=== PATIENT | female | born 1985 | race Asian ===

== ENCOUNTER → 2019-03-19 | Outpatient (CLI) | payer OTHER | END | disposition home or self-care (01) | LOC: LAB SHORT 14:29 → LAB 14:29 | DX: Z34.80 Encounter for supervision of other normal pregnancy, unspecified trimester (principal) | CPT/HCPCS: 87081; 87653 ==

== ENCOUNTER 2019-04-10 08:12 | Inpatient (IN) | payer OTHER ==
[~2019-04-10] VITALS: Ht 154.9 cm; Wt 74.8 kg
--- NOTE | 2019-04-10 08:28 | NUR ---
HERE WITH REPORT OF CONTRACTIONS SINCE 619 PATIENT WANTS TO AND IS FRIGHTENED BECAUSE HER LAST EXPERIENCE WAS TERRIBLE
[2019-04-10] MEDS ORDERED: ALIVE PRENATAL1 EACH PO (10:54)
[2019-04-10 11:42] LABS: BASOPHILS ABSOLUTE AUTO 0.05 K/mm3 (0.00-0.23); BASOPHILS PERCENT AUTO 0 % (0-2); EOSINOPHILS ABSOLUTE AUTO 0.01 K/mm3 (0.00-0.68); EOSINOPHILS PERCENT AUTO 0 % (0-6); Hematocrit 40.1 % (33.0-51.0); Hemoglobin 13.4 g/dL (11.5-16.0); IMMATURE GRAN ABSOLUTE AUTO 0.12 K/mm3 (0.00-0.10); IMMATURE GRAN PERCENT AUTO 1 % (0-1); LYMPHOCYTES ABSOLUTE AUTO 1.45 K/mm3 (0.84-5.20); LYMPHOCYTES PERCENT AUTO 8 % (21-46); MONOCYTES ABSOLUTE AUTO 0.61 K/mm3 (0.16-1.47); MONOCYTES PERCENT AUTO 4 % (4-13); Mean Corpuscular HGB 29.6 pg (26.0-34.0); Mean Corpuscular HGB Conc 33.4 g/dL (31.5-36.5); Mean Corpuscular Volume 89 fL (80-100); NEUTROPHILS ABSOLUTE AUTO 15.39 K/mm3 (1.96-9.15); NEUTROPHILS PERCENT AUTO 87 % (41-73); Platelet Count 272 K/mm3 (150-400); RDW Coefficient Variation 13.6 % (11.7-14.2); Red Blood Cell Count 4.53 M/mm3 (3.80-5.20); White Blood Cell Count 17.63 K/mm3 (4.00-11.30)
[2019-04-10 16:20] LABS: PCO2 Cord - Arterial 94.7 mmHg (40-50); pH Cord - Arterial 6.91 (7.28-7.35)
[2019-04-10 16:22] LABS: PCO2 Cord - Venous 87.1 mmHg (40-50); PO2 Cord - Arterial < 12 mmHg (16-20); pH Umbilical Cord - Venous 6.98 (7.26-7.35)
[2019-04-10 16:23] LABS: PO2 Cord - Venous < 12 mmHg (28-32)
--- NOTE | 2019-04-10 16:26 | NUR ---
04/10/19 1626 Lorena Salcido [id number] PT ARRIVED TO [facility] OR SUITE WITH ARIAS CATHETER INTACT DRAINING CLEAR YELLOW URINE,
--- NOTE | 2019-04-10 19:20 | NUR ---
OUT TO ROOM VIA BED. REPORT TO ONCOMING SHIFT
[2019-04-10 21:04] LABS: Hematocrit 27.7 % (33.0-51.0)
--- NOTE | 2019-04-10 23:39 | NUR ---
UPON INITIAL [employer]OCK MINER BLASTING FOUND PT BP 80'S/50'S WITH HR IN 140'S FUNDUS WAS MIDLINE AND 1FINGER ABOVE THE UMBILICUS WITH SMALL BLEEDING WITH MASSAGE. PT REPORTED DIZZINESS AND RINGING IN THE EARS AND WAS REQUESTING OXYGEN. MANUAL BP WAS ATTEMPTED AND PT BECAME DROWSY AND DIFFICULT TO AROUSE. MARITZA IQBAL AND LORENZA WERE CALLED TO THE ROOM TO ASSESS AROUND 1939 AND AN REPORTING SPECIALIST WAS CALLED AT 1948. FUNDAL MASSAGE WAS PERFORMED BY LORENZA AND MANUAL BP WAS ATTEMPED AGAIN BUT UNSUCCESSFUL. AT 1949 A BOLUS OF PIT WAS STARTED AT 999ML/HR AND QXYGEN WAS ADMINISTERED VIA NONREBREATHER, ALSO, A BOLUS OF LR WAS STARTED. WITH VIGOROUS FUDAL MASSAGE 2LG CLOTS WERE EXPELLED AND FUNDUS WAS 2 FINGERS ABOVE UMBILICUS. AT 1952 FUNDUS WAS 3 ABOVE UMBILICUS AND MANUAL BP WAS 88/42 WITH A HR IN 130S. AT 1958 METHERGINE WAS GIVEN IM IN THE RT LEG AND DR SCHMIDT WAS IN ROOM. PT MANUAL BP WAS 80/58 AND FUNDUS REMAINED FIRM AT 2 FINGERS ABOVE UMBILICUS AT 2009, MANUAL BP 100/55 HR 104 O2SAT 100%. AT 2014, MANUAL BP 105/58. STAFF IN ROOM FOR REPORTING SPECIALIST INCLUDED MARITZA SOLORIO , MARITZA BRITT , MARITZA IQBAL , S/MARITZA MANZANARES , MARITZA ARIAS , KIRTI,MARITZA (ICU), DR. Rickey SCHMIDT, AND RT STAFF
[2019-04-11 05:26] LABS: Hematocrit 22.3 % (33.0-51.0); Hemoglobin 7.3 g/dL (11.5-16.0); Mean Corpuscular HGB 29.9 pg (26.0-34.0); Mean Corpuscular HGB Conc 32.7 g/dL (31.5-36.5); Mean Corpuscular Volume 91 fL (80-100); Mean Platelet Volume 9.5 fL (9.1-12.4); Platelet Count 219 K/mm3 (150-400); RDW Coefficient Variation 13.6 % (11.7-14.2); RDW Standard Deviation 45.4 fL (35.1-46.3); Red Blood Cell Count 2.44 M/mm3 (3.80-5.20); White Blood Cell Count 19.96 K/mm3 (4.00-11.30)
--- NOTE | 2019-04-11 11:45 | NUR ---
IV STARTED BY RN FROM ICU, DORA. MD REQUESTED PT HAVE A POWERGLIDE IV PLACED, BUT RN SAYS PT HAS A LOT OF NERVE BUNDLES NEARBY AND WAS ABLE TO PLACE A PERIPHERAL IV INSTEAD
--- NOTE | 2019-04-11 11:58 | NUR ---
PT EDUCATED ON BLOOD TRANSFUSION PROCESS
[2019-04-11 14:32] LABS: Hematocrit 22.7 % (33.0-51.0); Hemoglobin 7.4 g/dL (11.5-16.0)
[2019-04-12 05:59] LABS: BASOPHILS ABSOLUTE AUTO 0.03 K/mm3 (0.00-0.23); BASOPHILS PERCENT AUTO 0 % (0-2); EOSINOPHILS ABSOLUTE AUTO 0.04 K/mm3 (0.00-0.68); EOSINOPHILS PERCENT AUTO 0 % (0-6); Hematocrit 20.6 % (33.0-51.0); Hemoglobin 6.7 g/dL (11.5-16.0); IMMATURE GRAN ABSOLUTE AUTO 0.13 K/mm3 (0.00-0.10); IMMATURE GRAN PERCENT AUTO 1 % (0-1); LYMPHOCYTES ABSOLUTE AUTO 2.08 K/mm3 (0.84-5.20); LYMPHOCYTES PERCENT AUTO 13 % (21-46); MONOCYTES ABSOLUTE AUTO 1.02 K/mm3 (0.16-1.47); MONOCYTES PERCENT AUTO 6 % (4-13); Mean Corpuscular HGB 29.8 pg (26.0-34.0); Mean Corpuscular HGB Conc 32.5 g/dL (31.5-36.5); Mean Corpuscular Volume 92 fL (80-100); Mean Platelet Volume 9.1 fL (9.1-12.4); NEUTROPHILS ABSOLUTE AUTO 13.26 K/mm3 (1.96-9.15); NEUTROPHILS PERCENT AUTO 80 % (41-73); Platelet Count 222 K/mm3 (150-400); RDW Standard Deviation 50.1 fL (35.1-46.3); Red Blood Cell Count 2.25 M/mm3 (3.80-5.20); White Blood Cell Count 16.56 K/mm3 (4.00-11.30)
--- NOTE | 2019-04-12 06:28 | NUR ---
PT VISITED IN NURSERY AT 0545.
[2019-04-12 12:45] LABS: Hematocrit 25.8 % (33.0-51.0); Hemoglobin 8.5 g/dL (11.5-16.0)
--- NOTE | 2019-04-12 16:32 | NUR ---
PT UP TO CHAIR, TOLERATED FAIR. ENCOURAGED PT TO TAKE A SHOWER. PT STATED SHE WANTED TO WAIT UNTIL TOMORROW. PT REQUESTED PAIN MEDICATION AND RE EVALUATE SHOWER AFTER PAIN MEDICATION. WILL CONTINUE TO MONITOR.
[2019-04-13 05:32] LABS: BASOPHILS ABSOLUTE AUTO 0.04 K/mm3 (0.00-0.23); BASOPHILS PERCENT AUTO 0 % (0-2); EOSINOPHILS ABSOLUTE AUTO 0.14 K/mm3 (0.00-0.68); EOSINOPHILS PERCENT AUTO 1 % (0-6); Hematocrit 22.8 % (33.0-51.0); Hemoglobin 7.5 g/dL (11.5-16.0); IMMATURE GRAN ABSOLUTE AUTO 0.14 K/mm3 (0.00-0.10); IMMATURE GRAN PERCENT AUTO 1 % (0-1); LYMPHOCYTES ABSOLUTE AUTO 2.23 K/mm3 (0.84-5.20); LYMPHOCYTES PERCENT AUTO 16 % (21-46); MONOCYTES ABSOLUTE AUTO 0.64 K/mm3 (0.16-1.47); MONOCYTES PERCENT AUTO 5 % (4-13); Mean Corpuscular HGB 29.8 pg (26.0-34.0); Mean Corpuscular HGB Conc 32.9 g/dL (31.5-36.5); Mean Corpuscular Volume 91 fL (80-100); Mean Platelet Volume 8.8 fL (9.1-12.4); NEUTROPHILS ABSOLUTE AUTO 10.52 K/mm3 (1.96-9.15); NEUTROPHILS PERCENT AUTO 77 % (41-73); Platelet Count 244 K/mm3 (150-400); RDW Standard Deviation 49.4 fL (35.1-46.3); Red Blood Cell Count 2.52 M/mm3 (3.80-5.20); White Blood Cell Count 13.71 K/mm3 (4.00-11.30)
--- NOTE | 2019-04-13 06:11 | NUR ---
ADL NOTE: PT OFFERED SHOWER AT START OF SHIFT BUT DECLINED AND AGREED TO SHOWER IN THE AM. PT OFFERED SHOWER AT THIS TIME AND STATED THAT IT WAS TOO EARLY.
--- NOTE | 2019-04-14 00:51 | NUR ---
SWELLING NOTE: PT CALLED THIS RN TO ROOM CONCERNED ABOUT BILATERAL LOWER EXTREMITY SWELLING. NEGATIVE HOLMANS. SWELLING FAILY EQUAL- SLIGHTLY INCREASE IN RIGHT VS LEFT, NO HOT TO TOUCH OR TENDER. DISCUSSED WHAT TO EXPECT WITH SWELLING AND KEEPING LEGS ELEVATED MUCH POSSIBLE. PT VERBILIZED UNDERSTANDING. GIVEN EXTRA PILLOWS FOR UNDER FEET. WILL CONTINUE TO MONITOR
--- NOTE | 2019-04-14 09:15 | NUR ---
PT FINALLY GOT SOME SLEEP LAST NIGHT. AWAKE AND VERY TEARFUL MISSING HER DAUGHTER. UNABLE TO SEE HER D/T HER BEING SICK SO NOT COPING WELL WITH IT. HAD A LONG TALK WITH PATIENT ABOUT HER EMOTIONS AND STRESS SINCE BEING HERE. FOB REMAINS AT BEDSIDE AND VERY ATTENTIVE. AMBULATING WELL IN ROOM. STATES SHE IS STILL GETTING DIZZY AND OCCASSIONALLY SEEING SPOTS WHEN SHE GETS UP BUT TOLERATING IT WELL. WILL DISCUSS WITH SCHMIDT TODAY ABOUT ADDITIONAL LABS PER PATIENTS REQUEST. PT IS WANTING HER IV OUT D/T BEING A LITTLE SWOLLEN AND VERY SORE. VERBALIZES UNDERSTANDING OF POSSIBLY NEEDING ANOTHER ONE. PAIN MEDS WORK WELL FOR PATIENT BUT ENCOURAGED HER TO TAKE THEM A LITTLE MORE OFTEN TO STAY ON TOP OF PAIN. BF, BOTTLE FEEDING AND PUMPING INDEPENDANTLY. VSS. CONTINUES TO PASS GAS BUT NO BM YET.
[2019-04-14 12:00] LABS: BASOPHILS ABSOLUTE AUTO 0.03 K/mm3 (0.00-0.23); BASOPHILS PERCENT AUTO 0 % (0-2); EOSINOPHILS ABSOLUTE AUTO 0.18 K/mm3 (0.00-0.68); EOSINOPHILS PERCENT AUTO 2 % (0-6); Hematocrit 24.8 % (33.0-51.0); Hemoglobin 7.9 g/dL (11.5-16.0); IMMATURE GRAN ABSOLUTE AUTO 0.17 K/mm3 (0.00-0.10); IMMATURE GRAN PERCENT AUTO 2 % (0-1); LYMPHOCYTES ABSOLUTE AUTO 2.08 K/mm3 (0.84-5.20); LYMPHOCYTES PERCENT AUTO 20 % (21-46); MONOCYTES ABSOLUTE AUTO 0.53 K/mm3 (0.16-1.47); MONOCYTES PERCENT AUTO 5 % (4-13); Mean Corpuscular HGB Conc 31.9 g/dL (31.5-36.5); Mean Corpuscular Volume 91 fL (80-100); Mean Platelet Volume 8.6 fL (9.1-12.4); NEUTROPHILS ABSOLUTE AUTO 7.35 K/mm3 (1.96-9.15); NEUTROPHILS PERCENT AUTO 71 % (41-73); Platelet Count 305 K/mm3 (150-400); RDW Coefficient Variation 14.5 % (11.7-14.2); RDW Standard Deviation 47.7 fL (35.1-46.3); Red Blood Cell Count 2.72 M/mm3 (3.80-5.20); White Blood Cell Count 10.34 K/mm3 (4.00-11.30)
--- NOTE | 2019-04-14 12:56 | NUR ---
DR SCHMIDT UPDATED, SANDRA RN NOTIFIED WAS CALLED TO PT ROOM AT 1240 WITH COMPLAINT FROM PATIENT AND , THAT PT WAS VERY DIZZY AND CANT FINISH HER SENTENCES. PT WAS SITTING AT SIDE OF BED, CLUTCHING THE SIDE RAIL. GOT PATIENT INTO BED, DID A SET OF VS 114/84 PULSE IS 100, BIOX 98%, REPEATED 10 MIN LATER 125/83 PULSE 100. PT REPORTS KNOWS THE WORDS SHE WANTS TO SAY, BUT DOZES OFF TRYING TO SAY HER THOUGHTS. H&H IS SLIGHTLY UP. DR SCHMIDT WAS UPDATED, NO NEW ORDERS,
--- NOTE | 2019-04-14 14:17 | NUR ---
RASH CALLED TO ROOM HER BACK WAS REALLY BURNING ,ITCHY AND HOT. IT APPEARS TO BE WHERE THE TAPE WAS ON HER BACK FROM HER EPIDURAL. YOU CAN SEE THE ACTUAL STRAIGHT LINES OF WHERE THE TAPE WOULD OF BEEN AND ITS RED, HOT, RAISED AND ITCHY. THE ACTUAL EPIDURAL SITE IS WNL. ORDER TO TRY HYDROCORTISONE CREAM TO AFFECTED AREA. PT STATES HER DIZZINESS HAS IMPROVED AND IS TALKING NORMAL.
[2019-04-14] MEDS ORDERED: Ferrous Sulfat325 M2 PO (15:18)
[2019-04-14] MEDS ORDERED: GAVILAX17 GM PO (15:19)
[2019-04-14] MEDS ORDERED: DOCU100 PO (15:19)
[2019-04-14] MEDS ORDERED: Percocet 5-3251 EACH PO (15:20)
[2019-04-14] MEDS ORDERED: IBUP800 PO (15:20)
--- NOTE | 2019-04-14 18:22 | NUR ---
DISCUSSION PATIENT OPENED UP TO ME WHILE FOB WHEN TO PHARMACY TO GET MEDS. EXPLAINED THAT THIS ENTIRE EXPERIENCED HAS REALLY SHAKEN UP HER WELL. HE HAS SEVERE ANXIETY AND AGORAPHOBIA. PT VERY EMOTIONAL AND CRYING. EXPLAINED THAT HE HAS TO THERAPY EVERY WEEK AND ENCOURAGED THEM BOTH TO GO TOGETHER THIS WEEK TO DISCUSS THIS EVENT OF HER FEELING LIKE SHE WAS TO HELP BOTH OF THEM COPE AND HEAL. POST DEPRESSION DISCUSSED A LOT. SHE STATES SHE HAD THIS WITH HER DAUGHTER BUT DIDNT WANT HER TO KNOW AND JUST WORKED THOUGH IT ON HER OWN. PT PROMISES TO GO SEE DR SCHMIDT THIS TIME IF SHE STARTS FEELING THIS WAY. WILL PLAN TO DO A FOLLOW UP A FEW DAYS AFTER PATIENT IS HOME TO SEE HOW SHE IS DOING EMOTIONALLY AND PHYSICALLY. PT STILL CONINUES TO COMPLAIN OF A HEADACHE. STATES MEDS AND SLEEP HAVE HELPED BUT STILL HASNT GONE AWAY. ENCOURAGED TO DRINK LOTS OF WATER AND REST MUCH POSSIBLE.
--- NOTE | 2019-04-14 18:40 | NUR ---
DR BRAYAN SCHMIDT CALLED TO CHECK IN ON PATIENT. EXPLAINED TEAR FULL EPISODES AND SOME OF THE MENTAL HEALTH ISSUES GOING ON FOR BRAYAN TO KEEP AN EYE ON. PT STATES SHE FEELS OK TO BE PUT TO BORDER STATUS. DISCHARGE INSTRUCTIONS DISCUSSED AND PATIENT AND VERBALIZE UNDERSTANDING OF THEM AND FOLLOW UP APPOINTMENTS.
--- NOTE | 2019-04-14 19:06 | NUR ---
DISCHARGE MOTHER TO [facility] STATUS. DISCHARGE TEACHING DONE AND PARENTS VERBALIZE UNDERSTANDING OF INSTRUCTIONS AND FOLLOW UP APPOINTMENTS. NO QUESTIONS OR CONCERNS.
--- NOTE | 2019-04-14 19:16 | NUR ---
UPDATED ON RASH BACK RASH HAS IMPROVED WITH HYDROCORDISONE CREAM AND WILL APPLY AGAIN BEFORE GOING TO BED.
== END 2019-04-14 19:31 | disposition home or self-care (01) | DRG 786 ==
LOC: BC 08:12 → OBS 08:12 → BC 08:13 → OBS 10:24 → BC 10:25
PROVIDERS: ADMIT Obstetrics & Gynecology
PROC: 0WJF0ZZ Inspection of Abdominal Wall, Open Approach (ICD-10-PCS; 2019-04-10)
PROC: 10907ZC Drainage of Amniotic Fluid, Therapeutic from Products of Conception, Via Natural or Artificial Opening (ICD-10-PCS; 2019-04-10)
PROC: 10D00Z1 Extraction of Products of Conception, Low, Open Approach (ICD-10-PCS; principal; 2019-04-10 14:15)
PROC: 30233N1 Transfusion of Nonautologous Red Blood Cells into Peripheral Vein, Percutaneous Approach (ICD-10-PCS; 2019-04-12)
DX: O24.420 Gestational diabetes mellitus in childbirth, diet controlled (principal); O71.1 Rupture of uterus during labor; D62 Acute posthemorrhagic anemia; Z3A.39 39 weeks gestation of pregnancy; Z37.0 Single live birth; O99.89 Other specified diseases and conditions complicating pregnancy, childbirth and the puerperium; O76 Abnormality in fetal heart rate and rhythm complicating labor and delivery; N13.30 Unspecified hydronephrosis; O64.1XX0 Obstructed labor due to breech presentation, not applicable or unspecified; O77.0 Labor and delivery complicated by meconium in amniotic fluid; O90.81 Anemia of the puerperium
CPT/HCPCS: 36415; 36430; 51702; 59025; 82803; 82947; 85014; 85018; 85025; 85027; 86850; 86900; 86901; 86923; J0690; J1885; J1940; J2001; J2210; J2250; J2370; J2590; J2704; J2765; J3010; J7120; P9016

== ENCOUNTER 2019-05-01 14:20 | Emergency (ER) | payer OTHER ==
[~2019-05-01] VITALS: Ht 154.9 cm; Wt 69.0 kg
[~2019-05-01 14:20] MED LIST: ALIVE PRENATAL1 EACH PO; DOCU100 PO; Ferrous Sulfat325 M2 PO; GAVILAX17 GM PO; IBUP800 PO; Percocet 5-3251 EACH PO
[2019-05-01 14:38] LABS: BASOPHILS ABSOLUTE AUTO 0.05 K/mm3 (0.00-0.23); BASOPHILS PERCENT AUTO 1 % (0-2); EOSINOPHILS ABSOLUTE AUTO 0.13 K/mm3 (0.00-0.68); EOSINOPHILS PERCENT AUTO 1 % (0-6); Hematocrit 35.1 % (33.0-51.0); IMMATURE GRAN ABSOLUTE AUTO 0.05 K/mm3 (0.00-0.10); IMMATURE GRAN PERCENT AUTO 1 % (0-1); LYMPHOCYTES ABSOLUTE AUTO 2.05 K/mm3 (0.84-5.20); LYMPHOCYTES PERCENT AUTO 20 % (21-46); MONOCYTES ABSOLUTE AUTO 0.64 K/mm3 (0.16-1.47); MONOCYTES PERCENT AUTO 6 % (4-13); Mean Corpuscular HGB 29.9 pg (26.0-34.0); Mean Corpuscular HGB Conc 31.3 g/dL (31.5-36.5); NEUTROPHILS ABSOLUTE AUTO 7.36 K/mm3 (1.96-9.15); NEUTROPHILS PERCENT AUTO 72 % (41-73); Platelet Count 487 K/mm3 (150-400); RDW Coefficient Variation 13.6 % (11.7-14.2); Red Blood Cell Count 3.68 M/mm3 (3.80-5.20); White Blood Cell Count 10.28 K/mm3 (4.00-11.30)
[2019-05-01 14:40] LABS: Mean Corpuscular Volume 95 fL (80-100)
[2019-05-01 14:51] LABS: Alanine Aminotransfer (ALT/SGP 19 U/L (12-78); Albumin, Blood 3.3 g/dL (3.4-5.0); Albumin/Globulin Ratio 0.8 (0.8-1.8); Alk Phos 81 U/L (50-136); Anion Gap 7 mmol/L (6-16); Aspartate Aminotrans (AST/SGOT 13 U/L (12-37); Bilirubin, Total 0.3 mg/dL (0.1-1.0); Blood Urea Nitrogen 12 mg/dL (8-24); CO2, Blood 25 mmol/L (21-32); Calcium, Blood 8.5 mg/dL (8.5-10.1); Chloride, Blood 108 mmol/L (98-108); Creatinine, Blood 0.55 mg/dL (0.40-1.00); Globulin, Blood 3.9 g/dL (2.2-4.0); Glomerular Filtration Rate >60 (60-); Glucose, Blood 122 mg/dL (70-99); Potassium, Blood 3.7 mmol/L (3.5-5.5); Sodium, Blood 140 mmol/L (136-145); Total Protein, Blood 7.2 g/dL (6.4-8.2)
== END 2019-05-01 17:40 | disposition home or self-care (01) ==
LOC: ER 14:20
PROVIDERS: Emergency Medicine
DX: O99.89 Other specified diseases and conditions complicating pregnancy, childbirth and the puerperium (principal); R10.31 Right lower quadrant pain; Z79.899 Other long term (current) drug therapy; Z87.891 Personal history of nicotine dependence
CPT/HCPCS: 74177; 80053; 84703; 85025; 96374-59; 96375; 99284-25; J2405; J3010; Q9967

== ENCOUNTER 2019-05-04 03:40 | Observation (INO) | payer OTHER ==
[~2019-05-04] VITALS: Ht 154.9 cm; Wt 69.4 kg
[2019-05-04 03:53] LABS: BASOPHILS ABSOLUTE AUTO 0.03 K/mm3 (0.00-0.23); BASOPHILS PERCENT AUTO 0 % (0-2); EOSINOPHILS ABSOLUTE AUTO 0.22 K/mm3 (0.00-0.68); EOSINOPHILS PERCENT AUTO 2 % (0-6); Hematocrit 33.9 % (33.0-51.0); Hemoglobin 10.5 g/dL (11.5-16.0); IMMATURE GRAN ABSOLUTE AUTO 0.05 K/mm3 (0.00-0.10); IMMATURE GRAN PERCENT AUTO 0 % (0-1); LYMPHOCYTES ABSOLUTE AUTO 5.06 K/mm3 (0.84-5.20); LYMPHOCYTES PERCENT AUTO 43 % (21-46); MONOCYTES ABSOLUTE AUTO 0.75 K/mm3 (0.16-1.47); MONOCYTES PERCENT AUTO 6 % (4-13); Mean Corpuscular HGB 29.7 pg (26.0-34.0); Mean Corpuscular Volume 96 fL (80-100); Mean Platelet Volume 8.2 fL (9.1-12.4); NEUTROPHILS ABSOLUTE AUTO 5.64 K/mm3 (1.96-9.15); NEUTROPHILS PERCENT AUTO 48 % (41-73); Platelet Count 515 K/mm3 (150-400); RDW Coefficient Variation 13.5 % (11.7-14.2); RDW Standard Deviation 47.8 fL (35.1-46.3); Red Blood Cell Count 3.54 M/mm3 (3.80-5.20); White Blood Cell Count 11.75 K/mm3 (4.00-11.30)
[2019-05-04 04:22] LABS: Alanine Aminotransfer (ALT/SGP 20 U/L (12-78); Albumin, Blood 3.5 g/dL (3.4-5.0); Albumin/Globulin Ratio 0.9 (0.8-1.8); Alk Phos 91 U/L (50-136); Anion Gap 8 mmol/L (6-16); Aspartate Aminotrans (AST/SGOT 23 U/L (12-37); Beta HCG, Quantitative, Serum <1 mIU/mL (0-3); Bilirubin, Total 0.2 mg/dL (0.1-1.0); Blood Urea Nitrogen 12 mg/dL (8-24); CO2, Blood 26 mmol/L (21-32); Calcium, Blood 8.7 mg/dL (8.5-10.1); Chloride, Blood 105 mmol/L (98-108); Creatinine, Blood 0.57 mg/dL (0.40-1.00); Globulin, Blood 4.1 g/dL (2.2-4.0); Glomerular Filtration Rate >60 (60-); Glucose, Blood 139 mg/dL (70-99); Potassium, Blood 3.2 mmol/L (3.5-5.5); Sodium, Blood 139 mmol/L (136-145); Total Protein, Blood 7.6 g/dL (6.4-8.2)
[2019-05-04] MEDS ORDERED: AMOX875 (06:59)
[2019-05-04 07:19] LABS: BASOPHILS ABSOLUTE AUTO 0.05 K/mm3 (0.00-0.23); BASOPHILS PERCENT AUTO 0 % (0-2); EOSINOPHILS ABSOLUTE AUTO 0.02 K/mm3 (0.00-0.68); EOSINOPHILS PERCENT AUTO 0 % (0-6); Hematocrit 36.4 % (33.0-51.0); Hemoglobin 11.7 g/dL (11.5-16.0); IMMATURE GRAN ABSOLUTE AUTO 0.11 K/mm3 (0.00-0.10); IMMATURE GRAN PERCENT AUTO 1 % (0-1); LYMPHOCYTES ABSOLUTE AUTO 1.08 K/mm3 (0.84-5.20); LYMPHOCYTES PERCENT AUTO 6 % (21-46); MONOCYTES ABSOLUTE AUTO 0.54 K/mm3 (0.16-1.47); MONOCYTES PERCENT AUTO 3 % (4-13); Mean Corpuscular HGB 29.5 pg (26.0-34.0); Mean Corpuscular HGB Conc 32.1 g/dL (31.5-36.5); Mean Platelet Volume 8.1 fL (9.1-12.4); NEUTROPHILS ABSOLUTE AUTO 17.67 K/mm3 (1.96-9.15); NEUTROPHILS PERCENT AUTO 91 % (41-73); Platelet Count 352 K/mm3 (150-400); RDW Standard Deviation 50.9 fL (35.1-46.3); Red Blood Cell Count 3.96 M/mm3 (3.80-5.20); White Blood Cell Count 19.47 K/mm3 (4.00-11.30)
--- NOTE | 2019-05-04 07:20 | NUR ---
PT ARRIVED TO ROOM 229 FROM ER DEPT PT IS BEING ADMITTED FOR BLEEDING PT PT STATED SHE FEELS SLIGHTY DIZZY AT THIS TIME NO VAG BLEEDING AT THIS TIME PT WEARING ATTENDS ORIENTED TO ROOM AT BEDSIDE
[2019-05-04 07:48] LABS: Mean Corpuscular Volume 92 fL (80-100)
--- NOTE | 2019-05-04 08:24 | NUR ---
MEDS GIVEN SCHED ALSO CALLED PHARMACY RE PT ABILITY TO BREASTFEED AFTER HAVING MED TO STOP BLEEDING CALLED [facility] TO GET A BREAST PUMP AND PADS PT TO DUMP THE MILK
--- NOTE | 2019-05-04 10:46 | NUR ---
PO MOTRIN GIVEN PO PERCOCET GIVEN EARLIER FOR CRAMPING 6-05/16 PT HAS SMALL AMT OF BLEEDING ON ATTENDS NO CLOTS
[2019-05-04 11:19] LABS: BASOPHILS ABSOLUTE AUTO 0.05 K/mm3 (0.00-0.23); BASOPHILS PERCENT AUTO 0 % (0-2); EOSINOPHILS PERCENT AUTO 0 % (0-6); Hematocrit 35.4 % (33.0-51.0); Hemoglobin 11.6 g/dL (11.5-16.0); IMMATURE GRAN ABSOLUTE AUTO 0.07 K/mm3 (0.00-0.10); IMMATURE GRAN PERCENT AUTO 1 % (0-1); LYMPHOCYTES ABSOLUTE AUTO 1.54 K/mm3 (0.84-5.20); LYMPHOCYTES PERCENT AUTO 10 % (21-46); MONOCYTES ABSOLUTE AUTO 0.49 K/mm3 (0.16-1.47); MONOCYTES PERCENT AUTO 3 % (4-13); Mean Corpuscular HGB 29.7 pg (26.0-34.0); Mean Corpuscular HGB Conc 32.8 g/dL (31.5-36.5); Mean Corpuscular Volume 91 fL (80-100); Mean Platelet Volume 8.1 fL (9.1-12.4); NEUTROPHILS PERCENT AUTO 86 % (41-73); Platelet Count 358 K/mm3 (150-400); RDW Coefficient Variation 15.5 % (11.7-14.2); RDW Standard Deviation 51.4 fL (35.1-46.3); Red Blood Cell Count 3.91 M/mm3 (3.80-5.20); White Blood Cell Count 15.45 K/mm3 (4.00-11.30)
--- NOTE | 2019-05-04 12:31 | NUR ---
TALKED WITH DR RAMOS RE PT LABS AND VS IV ANCEF 2GM GIVEN STILL MIN VAG BLEEDING H/H STABLE MIN DIZZINESS DR SCHMIDT TO SEE PT DR RAMOS UPDATED HER ON PT'S COND
--- NOTE | 2019-05-04 13:40 | NUR ---
DR SCHMIDT CALLED UPDATE GIVEN OK TO EAT REG DIET ORDERED
[2019-05-04 15:18] LABS: BASOPHILS ABSOLUTE AUTO 0.02 K/mm3 (0.00-0.23); BASOPHILS PERCENT AUTO 0 % (0-2); EOSINOPHILS ABSOLUTE AUTO 0.02 K/mm3 (0.00-0.68); EOSINOPHILS PERCENT AUTO 0 % (0-6); Hematocrit 32.2 % (33.0-51.0); Hemoglobin 10.5 g/dL (11.5-16.0); IMMATURE GRAN ABSOLUTE AUTO 0.05 K/mm3 (0.00-0.10); IMMATURE GRAN PERCENT AUTO 0 % (0-1); LYMPHOCYTES ABSOLUTE AUTO 2.39 K/mm3 (0.84-5.20); LYMPHOCYTES PERCENT AUTO 18 % (21-46); MONOCYTES ABSOLUTE AUTO 0.71 K/mm3 (0.16-1.47); MONOCYTES PERCENT AUTO 5 % (4-13); Mean Corpuscular HGB 29.6 pg (26.0-34.0); Mean Corpuscular HGB Conc 32.6 g/dL (31.5-36.5); Mean Corpuscular Volume 91 fL (80-100); Mean Platelet Volume 8.2 fL (9.1-12.4); NEUTROPHILS ABSOLUTE AUTO 9.91 K/mm3 (1.96-9.15); NEUTROPHILS PERCENT AUTO 76 % (41-73); Platelet Count 350 K/mm3 (150-400); RDW Coefficient Variation 15.5 % (11.7-14.2); RDW Standard Deviation 51.5 fL (35.1-46.3); Red Blood Cell Count 3.55 M/mm3 (3.80-5.20)
--- NOTE | 2019-05-04 15:33 | NUR ---
dr jazmin jauregui by to see pt
--- NOTE | 2019-05-04 17:17 | NUR ---
PT LEFT ROOM TO GO TO ULTRASOUND
[2019-05-05 04:19] LABS: BASOPHILS ABSOLUTE AUTO 0.04 K/mm3 (0.00-0.23); BASOPHILS PERCENT AUTO 1 % (0-2); EOSINOPHILS ABSOLUTE AUTO 0.14 K/mm3 (0.00-0.68); EOSINOPHILS PERCENT AUTO 2 % (0-6); Hemoglobin 10.3 g/dL (11.5-16.0); IMMATURE GRAN ABSOLUTE AUTO 0.04 K/mm3 (0.00-0.10); IMMATURE GRAN PERCENT AUTO 1 % (0-1); LYMPHOCYTES PERCENT AUTO 32 % (21-46); MONOCYTES ABSOLUTE AUTO 0.52 K/mm3 (0.16-1.47); MONOCYTES PERCENT AUTO 7 % (4-13); Mean Corpuscular HGB 29.3 pg (26.0-34.0); Mean Corpuscular HGB Conc 31.2 g/dL (31.5-36.5); Mean Platelet Volume 8.1 fL (9.1-12.4); NEUTROPHILS ABSOLUTE AUTO 4.62 K/mm3 (1.96-9.15); NEUTROPHILS PERCENT AUTO 59 % (41-73); Platelet Count 309 K/mm3 (150-400); RDW Coefficient Variation 15.7 % (11.7-14.2); RDW Standard Deviation 53.9 fL (35.1-46.3); Red Blood Cell Count 3.52 M/mm3 (3.80-5.20); White Blood Cell Count 7.86 K/mm3 (4.00-11.30)
[2019-05-05 04:22] LABS: Mean Corpuscular Volume 94 fL (80-100)
--- NOTE | 2019-05-05 08:35 | NUR ---
SUMMARY NO ACUTE CHANGES NOTED THROUGH THE NIGHT. VSS, NO BLEEDING NOTED, UTERUS REMAINS FIRM. LR INFUSING @ 125 ML/HR. PT'S IS IN THE ROOM AND ASSIST WITH CARE. BABY IS ALSO IN ROOM. PT ENCOURAGED TO CALL FOR ASSISTANCE TO THE BATHROOM FOR SAFETY DUE TO OCCASIONAL DIZZINESS. PAIN MEDICATED PER EMAR PRN. CALL LIGHT IN REACH. REPORT GIVEN TO DAY RN.
--- NOTE | 2019-05-05 13:16 | NUR ---
DR RAMOS IN TO SEE PT.
[2019-05-05] MEDS ORDERED: METHERGINE PO (14:19)
--- NOTE | 2019-05-05 14:51 | NUR ---
METHERGINE NOT AVAILABLE AT PT'S USUAL PHARMACY CALLED MULTIPLE PHARMACIES AND LOCATED AT [facility] AT THE [facility]. THIS PHARMACY IS FILLING FOR PT.
--- NOTE | 2019-05-05 15:23 | NUR ---
DISCHARGED DC'D IV, CATHETER INTACT. REVIEWED DC PAPERWORK W/PT & SPOUSE. VERBALIZED UNDERSTANDING. PT GETTING DRESSED. SPOUSE TAKING POSSESSIONS TO CAR.
--- NOTE | 2019-05-05 15:52 | NUR ---
PT LEFT UNIT IN WC ACCOMPANIED BY SPOUSE W/POSSESSIONS AND DC PAPERWORK IN HAND.
== END 2019-05-05 15:50 | disposition home or self-care (01) ==
LOC: ER 03:40 → SURS 05:00
PROVIDERS: Emergency Medicine; Obstetrics & Gynecology; ADMIT Obstetrics & Gynecology
DX: O72.2 Delayed and secondary postpartum hemorrhage (principal); O99.285 Endocrine, nutritional and metabolic diseases complicating the puerperium; E78.00 Pure hypercholesterolemia, unspecified; Z87.891 Personal history of nicotine dependence; Z79.899 Other long term (current) drug therapy
CPT/HCPCS: 36415; 36430; 76856; 80053; 84702; 85025; 86850; 86900; 86901; 86923; 96361; 96365; 96372; 96372-59; 96374-59; 96375; 96375-59; 99285-25; G0378; J0690; J1885; J2210; J7030; J7120; P9016

== ENCOUNTER 2019-05-09 09:36 | Inpatient (IN) | payer OTHER ==
[~2019-05-09] VITALS: Ht 154.9 cm; Wt 69.0 kg
[~2019-05-09 09:36] MED LIST changes: +AMOX875; +METHERGINE PO
[2019-05-09 10:11] LABS: BASOPHILS ABSOLUTE AUTO 0.06 K/mm3 (0.00-0.23); BASOPHILS PERCENT AUTO 1 % (0-2); EOSINOPHILS PERCENT AUTO 3 % (0-6); Hematocrit 34.7 % (33.0-51.0); IMMATURE GRAN ABSOLUTE AUTO 0.09 K/mm3 (0.00-0.10); IMMATURE GRAN PERCENT AUTO 1 % (0-1); LYMPHOCYTES PERCENT AUTO 22 % (21-46); MONOCYTES ABSOLUTE AUTO 0.61 K/mm3 (0.16-1.47); MONOCYTES PERCENT AUTO 6 % (4-13); Mean Corpuscular HGB 29.9 pg (26.0-34.0); Mean Corpuscular HGB Conc 31.7 g/dL (31.5-36.5); Mean Corpuscular Volume 94 fL (80-100); Mean Platelet Volume 8.4 fL (9.1-12.4); NEUTROPHILS ABSOLUTE AUTO 7.28 K/mm3 (1.96-9.15); NEUTROPHILS PERCENT AUTO 69 % (41-73); Platelet Count 346 K/mm3 (150-400); RDW Standard Deviation 48.4 fL (35.1-46.3); Red Blood Cell Count 3.68 M/mm3 (3.80-5.20); White Blood Cell Count 10.64 K/mm3 (4.00-11.30)
[2019-05-09 10:38] LABS: Alanine Aminotransfer (ALT/SGP 18 U/L (12-78); Albumin, Blood 3.4 g/dL (3.4-5.0); Albumin/Globulin Ratio 0.9 (0.8-1.8); Alk Phos 80 U/L (50-136); Anion Gap 7 mmol/L (6-16); Aspartate Aminotrans (AST/SGOT 9 U/L (12-37); Bilirubin, Total 0.2 mg/dL (0.1-1.0); Blood Urea Nitrogen 5 mg/dL (8-24); Bun/Creatinine Ratio 9.6 (12.0-20.0); CO2, Blood 24 mmol/L (21-32); Calcium, Blood 8.4 mg/dL (8.5-10.1); Chloride, Blood 109 mmol/L (98-108); Creatinine, Blood 0.52 mg/dL (0.40-1.00); Globulin, Blood 3.7 g/dL (2.2-4.0); Glomerular Filtration Rate >60 (60-); Glucose, Blood 92 mg/dL (70-99); Potassium, Blood 3.7 mmol/L (3.5-5.5); Sodium, Blood 140 mmol/L (136-145); Total Protein, Blood 7.1 g/dL (6.4-8.2)
--- NOTE | 2019-05-09 12:29 | NUR ---
INTO SDS VIA [employer]. PT A&OX3. DENIES PAIN AT THIS TIME. HISTORY AND ALLERGIES REVIEWED. NPO STATUS CONFIRMED. 1 UNIT PRBC'S INFUSING. SBP TRENDING 100'S.
--- NOTE | 2019-05-09 16:05 | NUR ---
PT ARRIVED TO ROOM 233 FROM PACU S/P ROB PT REPORTS PAIN 10/10 ALSO REPORTS NAUSEA NO EMESIS PT HAS TRANVERSE DRESSING CDI WITH ABD BINDER CL GIVEN PT REF AT THIS TIME PRBC INFUSING PT TO HAVE H/H CHECKED AT 1800 PT COLD ADDITIONAL BLANKETS ADDED ALONG WITH KPAD ORIENTED TO ROOM LAYOUT WILL ORDER CL DIET
--- NOTE | 2019-05-09 17:05 | NUR ---
PT HAD FEW ICE CHIPS STATED PAIN IS GETTING BETTER 6/10 SPOUSE AT BEDSIDE
--- NOTE | 2019-05-09 18:18 | NUR ---
pt reporting ringing in the ears checked pt for vag bleeding scant amt also no drainage to dressing discussed with pt using 0.5 mg dilaudid with next dose or po oxy
--- NOTE | 2019-05-09 18:33 | NUR ---
dr jazmin jauregui called update given increased ivf to 150 ml hr
[2019-05-09 18:59] LABS: BASOPHILS ABSOLUTE AUTO 0.04 K/mm3 (0.00-0.23); BASOPHILS PERCENT AUTO 0 % (0-2); EOSINOPHILS PERCENT AUTO 0 % (0-6); Hemoglobin 10.5 g/dL (11.5-16.0); IMMATURE GRAN ABSOLUTE AUTO 0.14 K/mm3 (0.00-0.10); IMMATURE GRAN PERCENT AUTO 1 % (0-1); LYMPHOCYTES ABSOLUTE AUTO 1.61 K/mm3 (0.84-5.20); LYMPHOCYTES PERCENT AUTO 7 % (21-46); MONOCYTES ABSOLUTE AUTO 0.83 K/mm3 (0.16-1.47); MONOCYTES PERCENT AUTO 4 % (4-13); Mean Corpuscular HGB 30.3 pg (26.0-34.0); Mean Corpuscular HGB Conc 32.8 g/dL (31.5-36.5); Mean Corpuscular Volume 93 fL (80-100); Mean Platelet Volume 8.4 fL (9.1-12.4); NEUTROPHILS ABSOLUTE AUTO 19.42 K/mm3 (1.96-9.15); NEUTROPHILS PERCENT AUTO 88 % (41-73); Platelet Count 285 K/mm3 (150-400); RDW Coefficient Variation 14.3 % (11.7-14.2); RDW Standard Deviation 48.4 fL (35.1-46.3); Red Blood Cell Count 3.46 M/mm3 (3.80-5.20); White Blood Cell Count 22.04 K/mm3 (4.00-11.30)
[2019-05-10 05:16] LABS: BASOPHILS ABSOLUTE AUTO 0.04 K/mm3 (0.00-0.23); BASOPHILS PERCENT AUTO 0 % (0-2); EOSINOPHILS PERCENT AUTO 1 % (0-6); Hemoglobin 8.7 g/dL (11.5-16.0); IMMATURE GRAN ABSOLUTE AUTO 0.07 K/mm3 (0.00-0.10); IMMATURE GRAN PERCENT AUTO 1 % (0-1); LYMPHOCYTES ABSOLUTE AUTO 2.73 K/mm3 (0.84-5.20); LYMPHOCYTES PERCENT AUTO 20 % (21-46); MONOCYTES ABSOLUTE AUTO 0.89 K/mm3 (0.16-1.47); MONOCYTES PERCENT AUTO 6 % (4-13); Mean Corpuscular HGB 30.3 pg (26.0-34.0); Mean Corpuscular HGB Conc 32.2 g/dL (31.5-36.5); Mean Corpuscular Volume 94 fL (80-100); Mean Platelet Volume 8.6 fL (9.1-12.4); NEUTROPHILS ABSOLUTE AUTO 10.16 K/mm3 (1.96-9.15); NEUTROPHILS PERCENT AUTO 73 % (41-73); Platelet Count 263 K/mm3 (150-400); RDW Coefficient Variation 14.5 % (11.7-14.2); RDW Standard Deviation 49.3 fL (35.1-46.3); Red Blood Cell Count 2.87 M/mm3 (3.80-5.20); White Blood Cell Count 13.99 K/mm3 (4.00-11.30)
--- NOTE | 2019-05-10 07:25 | NUR ---
POD 1 S/P ROB. PT BP REMAINED 90'S /50'S, HR TRENDING 70-80'S THIS AM. DRESSING CDI, DANITZA PAD CHANGED X1 R/T MODERATE SATURATION. PT CONT TO REP PAIN IN LOWER ABD AND RIGHT FLANK, PAIN MGD PER EMAR W/REP RELIEF. PT MANE SM AMT CLEAR LIQ, NO C/O N/V, BT HYPO, PT REP NO FLATUS YET. PT REMAINS WEAK AND FEARFUL FOR MVMT, PT DID NOT GET OOB THIS SHIFT. IVF CONT PER ORDERS. PT USING CALL LIGHT FOR ASSISTANCE, SIG OTHER AT BEDSIDE, REP GIVEN TO DAY RN.
--- NOTE | 2019-05-10 17:31 | NUR ---
SUMMARY: PT IS POD1 ROB, PAINFUL WITH MOVEMENT POST OP. A/O, HYPOTENSIVE TODAY BUT ASYPTOMATIC AT REST. REPORT SOME DIZZINESS WITH MOVEMENT. OTHERWISE ALL OTHER VSS. IV FLUIDS INFUSING AND ARIAS DC'D. PT ADVANCED TO REG DIET, NO N/V. SMALL AMOUNT VAGINAL BLEED, DANITZA PAD CHANGED X1. PT HAS NEEDED OXYCODONE Q4 AND 0.5 MG DILAUDID FOR BREAK THROUGH PAIN. SURGICAL SITE WNL. H & H STABLE TODAY. WILL COTINUE TO MONITOR PT STATUS AND REPOR TO GIFTY SALAS.
--- NOTE | 2019-05-11 01:10 | NUR ---
CALLED LAB TO DO AM DRAW EARLY DUE TO ELEVATED HR IN THE 140'S. PT DENIES PAIN, DISCOMFORT, ANXIETY, OR DYSPNEA. WILL CONTINUE TO MONITOR.
--- NOTE | 2019-05-11 01:21 | NUR ---
LAB AT BEDSIDE TO DRAW AM LABS.
[2019-05-11 02:00] LABS: BASOPHILS ABSOLUTE AUTO 0.05 K/mm3 (0.00-0.23); BASOPHILS PERCENT AUTO 0 % (0-2); EOSINOPHILS ABSOLUTE AUTO 0.15 K/mm3 (0.00-0.68); EOSINOPHILS PERCENT AUTO 1 % (0-6); Hematocrit 26.6 % (33.0-51.0); Hemoglobin 8.6 g/dL (11.5-16.0); IMMATURE GRAN ABSOLUTE AUTO 0.12 K/mm3 (0.00-0.10); IMMATURE GRAN PERCENT AUTO 1 % (0-1); LYMPHOCYTES ABSOLUTE AUTO 2.44 K/mm3 (0.84-5.20); LYMPHOCYTES PERCENT AUTO 17 % (21-46); MONOCYTES PERCENT AUTO 6 % (4-13); Mean Corpuscular HGB 30.2 pg (26.0-34.0); Mean Corpuscular HGB Conc 32.3 g/dL (31.5-36.5); Mean Corpuscular Volume 93 fL (80-100); Mean Platelet Volume 8.7 fL (9.1-12.4); NEUTROPHILS ABSOLUTE AUTO 10.39 K/mm3 (1.96-9.15); NEUTROPHILS PERCENT AUTO 74 % (41-73); Platelet Count 262 K/mm3 (150-400); RDW Coefficient Variation 14.3 % (11.7-14.2); RDW Standard Deviation 48.2 fL (35.1-46.3); Red Blood Cell Count 2.85 M/mm3 (3.80-5.20); White Blood Cell Count 14.05 K/mm3 (4.00-11.30)
--- NOTE | 2019-05-11 06:29 | NUR ---
LYING IN SEMI FOWLERS WITH EYES CLOSED. NO FURTHER EPISODES OF HR > 140'S, VSS, DENIED PAIN, DISCOMFORT, OR FURTHER NEEDS AT THIS TIME. SAFETY MEASURES IN PLACE. WILL GIVE HAND OFF TO ONCOMING SHIFT USING SBAR.
--- NOTE | 2019-05-11 06:57 | NUR ---
05/11/19 0657 Guerda Guerra VERIFICATIONS: EDIT CHART PER ORD..
--- NOTE | 2019-05-11 10:54 | NUR ---
SPOKE WITH DR. SCHMIDT CONCERNING PT BOWEL CARE, PT HAS NOT HAD A BM SINCE SURGERY. PT IS PASSING GAS, NO NEW ORDERS AT THIS TIME. PT TO TAKE OVER THE COUNTER BOWEL CARE UPON DISCHARGE AND PT EDUCATED. REPORT GIVEN TO LAURA BARKER RN WHO WILL BE TRANSPORTING PT AT DC. SURGICAL DRESSING CHANGED AND DC EDUCATION GIVEN. WILL CTM AND AWAIT PT TO BE TRANSPORTED WITH NV.
--- NOTE | 2019-05-11 19:55 | NUR ---
SUMMARY: PT IS POD2 ROB, NO ACUTE CHANGE TODAY. VSS, PT UP TO BATHROOM OFTEN TO VOID, SBA WITH FWW, MOVING BETTER AND LESS PAINFUL TODAY. DENIED ANY CLOTS OR VAGINAL BLEED. ABLE TO TAKE SHOWER, SURGICAL SITE WNL. PT REPORTS PAIN MANAGED WITH 2 OXY, Q4, PRN TORADOL AND TYLENOL. NO SAFETY CONCERNS AT THIS TIME, WILL CTM AND REPORT TO GIFTY SALAS.
--- NOTE | 2019-05-11 22:24 | NUR ---
IN ROOM ASSISTING WITH GOING TO THE BATHROOM. PATIENT IS NOW BACK IN BED AND RESTING.
--- NOTE | 2019-05-12 06:45 | NUR ---
LYING IN SEMI FOWLERS WITH EYES CLOSED. HAS RESTED WELL, VSS, DENIED PAIN, DISCOMFORT, OR FURTHER NEEDS AT THIS TIME. BOWEL CARE GIVEN AT BEDTIME. PAIN MANAGED WITH PRN PAIN MEDS PER MD ORDERS. SAFETY MEASURES IN PLACE. WILL GIVE HAND OFF TO ONCOMING SHIFT USING SBAR.
[2019-05-12] MEDS ORDERED: Percocet 5-3251 EACH PO (12:36)
[2019-05-12] MEDS ORDERED: ONDA4ODT MM (15:25)
[2019-05-12] MEDS ORDERED: IBUP800 PO (15:27)
--- NOTE | 2019-05-12 15:49 | NUR ---
DISCHARGE PT EDUCATED ON AND RECEIVED PRINTED DC INSTRUCTIONS AND VERBALIZED AN UNDERSTANDING. [facility] [address] PER PT REQUEST. EXTRA DRESSINGS AND PADS GIVEN TO PT. IV DC'D. PT GATHERING ALL PERSONAL BELONGINGS. SIG OTHER IN ROOM TO TAKE HER HOME.
== END 2019-05-12 16:00 | disposition home or self-care (01) | DRG 769 ==
LOC: ER 09:36 → SURS 12:23
PROVIDERS: Emergency Medicine; ADMIT Obstetrics & Gynecology
PROC: 0UT70ZZ Resection of Bilateral Fallopian Tubes, Open Approach (ICD-10-PCS; 2019-05-09)
PROC: 30233N1 Transfusion of Nonautologous Red Blood Cells into Peripheral Vein, Percutaneous Approach (ICD-10-PCS; 2019-05-09)
PROC: 0UT90ZL Resection of Uterus, Supracervical, Open Approach (ICD-10-PCS; principal; 2019-05-09 12:30)
DX: O72.2 Delayed and secondary postpartum hemorrhage (principal); D62 Acute posthemorrhagic anemia; Z87.891 Personal history of nicotine dependence; I95.9 Hypotension, unspecified; R00.0 Tachycardia, unspecified; R50.82 Postprocedural fever
CPT/HCPCS: 36415; 36430; 80053; 85025; 86850; 86900; 86901; 86923; 88307; 94762; 96372-59; 96374; 96375; 99285-25; A9270; J0330; J0690; J1170; J1885; J2210; J2370; J2405; J2543; J2704; J2765; J3010; J7030; J7120; P9016

== ENCOUNTER → 2019-09-12 | Outpatient (CLI) | payer OTHER ==
[~2019-09-12] MED LIST changes: +ONDA4ODT MM
[2019-09-12 10:05] LABS: BASOPHILS ABSOLUTE AUTO 0.04 K/mm3 (0.00-0.23); BASOPHILS PERCENT AUTO 1 % (0-2); EOSINOPHILS ABSOLUTE AUTO 0.12 K/mm3 (0.00-0.68); EOSINOPHILS PERCENT AUTO 2 % (0-6); Hematocrit 41.9 % (33.0-51.0); IMMATURE GRAN ABSOLUTE AUTO 0.02 K/mm3 (0.00-0.10); IMMATURE GRAN PERCENT AUTO 0 % (0-1); LYMPHOCYTES ABSOLUTE AUTO 2.33 K/mm3 (0.84-5.20); LYMPHOCYTES PERCENT AUTO 30 % (21-46); MONOCYTES ABSOLUTE AUTO 0.46 K/mm3 (0.16-1.47); MONOCYTES PERCENT AUTO 6 % (4-13); Mean Corpuscular HGB 28.8 pg (26.0-34.0); Mean Corpuscular HGB Conc 33.4 g/dL (31.5-36.5); Mean Corpuscular Volume 86 fL (80-100); Mean Platelet Volume 8.3 fL (9.1-12.4); NEUTROPHILS ABSOLUTE AUTO 4.85 K/mm3 (1.96-9.15); NEUTROPHILS PERCENT AUTO 62 % (41-73); Platelet Count 395 K/mm3 (150-400); RDW Coefficient Variation 12.4 % (11.7-14.2); RDW Standard Deviation 38.8 fL (35.1-46.3); Red Blood Cell Count 4.86 M/mm3 (3.80-5.20); White Blood Cell Count 7.82 K/mm3 (4.00-11.30)
[2019-09-12 10:28] LABS: Alanine Aminotransfer (ALT/SGP 18 U/L (12-78); Albumin, Blood 4.2 g/dL (3.4-5.0); Albumin/Globulin Ratio 0.9 (0.8-1.8); Alk Phos 88 U/L (40-126); Anion Gap 11 mmol/L (6-16); Aspartate Aminotrans (AST/SGOT 14 U/L (12-37); Bilirubin, Total 0.5 mg/dL (0.1-1.0); Blood Urea Nitrogen 10 mg/dL (8-24); Bun/Creatinine Ratio 18.2 (12.0-20.0); CHOL/HDL RATIO 3.8; CO2, Blood 26 mmol/L (21-32); Calcium, Blood 9.1 mg/dL (8.5-10.1); Chloride, Blood 104 mmol/L (98-108); Cholesterol 257 mg/dL (50-200); Creatinine, Blood 0.55 mg/dL (0.40-1.00); Globulin, Blood 4.6 g/dL (2.2-4.0); Glomerular Filtration Rate >60 (60-); Glucose, Blood 93 mg/dL (70-99); HDL Cholesterol 68 mg/dL (>39); LDL/HDL RATIO 2.6; Low Density Lipoprotein Chol 177 mg/dL (<110); Sodium, Blood 141 mmol/L (136-145); Thyroid Stimulating Hormone 0.636 uIU/mL (0.360-4.800); Total Protein, Blood 8.8 g/dL (6.4-8.2); Triglycerides 61 mg/dL (30-140); Very Low Density Lipoprot Chol 12 mg/dL (6-28)
== END | disposition home or self-care (01) ==
LOC: LAB SHORT 10:01 → LAB EV 10:01
PROVIDERS: Physician Assistant Medical
DX: E78.5 Hyperlipidemia, unspecified (principal); R53.83 Other fatigue
CPT/HCPCS: 80053; 80061; 84443; 85025

== ENCOUNTER → 2020-10-28 | Outpatient (CLI) | payer OTHER ==
[2020-10-28 14:09] LABS: BASOPHILS ABSOLUTE AUTO 0.06 K/mm3 (0.00-0.23); BASOPHILS PERCENT AUTO 1 % (0-2); EOSINOPHILS PERCENT AUTO 1 % (0-6); Hematocrit 41.4 % (33.0-51.0); Hemoglobin 13.8 g/dL (11.5-16.0); IMMATURE GRAN ABSOLUTE AUTO 0.06 K/mm3 (0.00-0.10); IMMATURE GRAN PERCENT AUTO 1 % (0-1); LYMPHOCYTES ABSOLUTE AUTO 2.65 K/mm3 (0.84-5.20); LYMPHOCYTES PERCENT AUTO 27 % (21-46); MONOCYTES ABSOLUTE AUTO 0.68 K/mm3 (0.16-1.47); MONOCYTES PERCENT AUTO 7 % (4-13); Mean Corpuscular HGB 28.8 pg (26.0-34.0); Mean Corpuscular HGB Conc 33.3 g/dL (31.5-36.5); Mean Corpuscular Volume 86 fL (80-100); Mean Platelet Volume 8.9 fL (9.1-12.4); NEUTROPHILS ABSOLUTE AUTO 6.28 K/mm3 (1.96-9.15); NEUTROPHILS PERCENT AUTO 64 % (41-73); Platelet Count 344 K/mm3 (150-400); RDW Coefficient Variation 12.3 % (11.7-14.2); RDW Standard Deviation 38.6 fL (35.1-46.3); White Blood Cell Count 9.83 K/mm3 (4.00-11.30)
[2020-10-28 14:28] LABS: Alanine Aminotransfer (ALT/SGP 18 U/L (12-78); Alk Phos 73 U/L (40-126); Anion Gap 10 mmol/L (6-16); Aspartate Aminotrans (AST/SGOT 13 U/L (12-37); Bilirubin, Total 0.3 mg/dL (0.1-1.0); Blood Urea Nitrogen 9 mg/dL (8-24); Bun/Creatinine Ratio 16.1 (12.0-20.0); CO2, Blood 25 mmol/L (21-32); Calcium, Blood 9.4 mg/dL (8.5-10.1); Chloride, Blood 103 mmol/L (98-108); Creatinine, Blood 0.56 mg/dL (0.40-1.00); Glomerular Filtration Rate >60 (60-); Glucose, Blood 106 mg/dL (70-99); Sodium, Blood 138 mmol/L (136-145); Thyroid Stimulating Hormone 1.413 uIU/mL (0.360-4.800)
== END ==
LOC: LAB SHORT 14:03
PROVIDERS: Physician Assistant
DX: R55 Syncope and collapse (principal); R53.83 Other fatigue
CPT/HCPCS: 80053; 84443; 85025